=== PATIENT | female | born 1960 | race Caucasian/White ===

== ENCOUNTER 2016-06-08 08:32 | Emergency (ER) | payer MEDICAID ==
[~2016-06-08] VITALS: Ht 165.1 cm; Wt 121.9 kg
[~2016-06-08 08:32] MED LIST: HYDR-3240 PO; IBUP-1222 PO; LEVO750T26 PO
[2016-06-08 08:33] VITALS: BP 153/83
== END 2016-06-08 10:22 | disposition home or self-care (01) ==
LOC: ED 08:50
DX: S93.402A Sprain of unspecified ligament of left ankle, initial encounter (principal); I10 Essential (primary) hypertension; W01.0XXA Fall on same level from slipping, tripping and stumbling without subsequent striking against object, initial encounter; Y93.89 Activity, other specified; Y92.89 Other specified places as the place of occurrence of the external cause; Y99.8 Other external cause status
CPT/HCPCS: 99284

== ENCOUNTER 2016-07-03 09:52 | Emergency (ER) | payer MEDICAID ==
[~2016-07-03] VITALS: Ht 162.6 cm; Wt 123.0 kg
[2016-07-03 10:00] VITALS: BP 148/82
== END 2016-07-03 11:39 | disposition home or self-care (01) ==
LOC: ED 11:30
DX: M25.531 Pain in right wrist (principal); G89.11 Acute pain due to trauma; I10 Essential (primary) hypertension; X58.XXXA Exposure to other specified factors, initial encounter; Y93.89 Activity, other specified; Y99.8 Other external cause status; Y92.89 Other specified places as the place of occurrence of the external cause
CPT/HCPCS: 29125

== ENCOUNTER 2016-07-24 09:42 | Emergency (ER) | payer MEDICAID ==
[~2016-07-24] VITALS: Ht 163.8 cm; Wt 121.5 kg
[2016-07-24 09:43] VITALS: BP 134/84
== END 2016-07-24 10:58 | disposition home or self-care (01) ==
LOC: ED 10:26
DX: S63.522A Sprain of radiocarpal joint of left wrist, initial encounter (principal); I10 Essential (primary) hypertension; X58.XXXA Exposure to other specified factors, initial encounter; Y93.89 Activity, other specified; Y92.488 Other paved roadways as the place of occurrence of the external cause; Y99.8 Other external cause status
CPT/HCPCS: 29125

== ENCOUNTER 2016-08-06 07:43 | Emergency (ER) | payer MEDICAID ==
[~2016-08-06] VITALS: Ht 162.6 cm; Wt 123.2 kg
[2016-08-06 07:47] VITALS: BP 160/87
== END 2016-08-06 09:56 | disposition home or self-care (01) ==
LOC: ED 08:37
DX: S60.211A Contusion of right wrist, initial encounter (principal); I10 Essential (primary) hypertension; W22.8XXA Striking against or struck by other objects, initial encounter; Y93.89 Activity, other specified; Y92.098 Other place in other non-institutional residence as the place of occurrence of the external cause; Y99.8 Other external cause status

== ENCOUNTER 2016-08-17 09:43 | Emergency (ER) | payer MEDICAID ==
[~2016-08-17] VITALS: Ht 165.1 cm; Wt 121.0 kg
[2016-08-17 09:49] VITALS: BP 145/87
== END 2016-08-17 10:55 | disposition home or self-care (01) ==
LOC: ED 10:15
DX: M79.671 Pain in right foot (principal); M79.674 Pain in right toe(s); I10 Essential (primary) hypertension
CPT/HCPCS: 99284